=== PATIENT | female | born 1990 | race American Indian/Alaskan Native ===

== ENCOUNTER 2016-12-06 12:17 | Emergency (ER) | payer SELFPAY ==
[2016-12-06 12:54] VITALS: BP 122/87
[2016-12-06] MEDS ORDERED: MOTRIN PO ONE (15:11)
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
== END 2016-12-06 17:03 | disposition home or self-care (01) ==
LOC: EEVIPCON 12:17 → ED 12:17
DX: R07.81 Pleurodynia (principal); R68.84 Jaw pain; M79.645 Pain in left finger(s); Y08.89XA Assault by other specified means, initial encounter; Y93.9 Activity, unspecified; Y92.9 Unspecified place or not applicable; Y99.9 Unspecified external cause status
CPT/HCPCS: 70355; 71111; 99283

== ENCOUNTER 2021-09-02 15:55 | Emergency (ER) | payer SELFPAY ==
[2021-09-02 15:58] VITALS: BP 132/77
== END 2021-09-02 16:34 | disposition left against medical advice (07) ==
LOC: ED 15:55
DX: Z04.1 Encounter for examination and observation following transport accident (principal); Z53.21 Procedure and treatment not carried out due to patient leaving prior to being seen by health care provider; V89.2XXA Person injured in unspecified motor-vehicle accident, traffic, initial encounter; Y93.89 Activity, other specified; Y92.89 Other specified places as the place of occurrence of the external cause; Y99.8 Other external cause status